=== PATIENT | male | born 1955 | race American Indian/Alaskan Native ===

== ENCOUNTER 2017-04-19 08:33 | Emergency (ER) | payer MEDICAID ==
[2017-04-19 10:43] LABS: Basophils % (Auto) 0.5 % (0.0-1.8); Hematocrit 48.2 % (35.5-45.6); Hemoglobin 16.2 gm/dl (11.8-15.2); Mean Corpuscular HGB Conc 34 % (32-34); Mean Corpuscular Hemoglobin 30 pg (28-32); Mean Corpuscular Volume 90 fl (84-94); Platelet Count 223 K/mm3 (140-440); Red Blood Count 5.38 M/mm3 (3.65-5.03); White Blood Count 8.1 K/mm3 (4.5-11.0)
[2017-04-19 10:46] LABS: Anion Gap 17 mmol/L; BUN/Creatinine Ratio 10; Blood Urea Nitrogen 11 mg/dL (9-20); Carbon Dioxide 32 mmol/L (22-30); Chloride 95.6 mmol/L (98-107); Glucose 99 mg/dL (75-100); Potassium 3.3 mmol/L (3.6-5.0); Sodium 141 mmol/L (137-145)
[2017-04-19] MEDS ORDERED: DILAUDID IM ONE (11:23)
[2017-04-19] MEDS ORDERED: TORADOL IM ONE (11:24)
[2017-04-19] MEDS ORDERED: K-DUR PO ONE (11:24)
--- NOTE | 2017-04-19 11:24 | Emergency Department Report ---
ED General Adult HPI - General Chief complaint: Pain General Stated complaint: NECK PAIN/WILLA Time Seen by Provider: 04/19/17 11:14 Source: patient, RN notes reviewed, old records reviewed Mode of arrival: Ambulatory Limitations: No Limitations - History of Present Illness Initial comments: This is a 61-year-old male. The patient is previously unknown to this provider. Patient has a past medical history of COPD. The patient presents with 2 complaints. The patient's first complaint is neck pain. The neck pain is paracervical, and involves his bilateral trapezius. The pain has been present for 1 month. It is constant. It increases with palpation, range of motion, twisting. It decreases with oxycodone. The patient denies headache, sore throat, fever, dysphonia, chest pain. The patient denies tinnitus, vertigo, otalgia. Patient seen in this department for a similar complaint earlier on in the month, that a noncontrast CT scan of the cervical spine which demonstrated no fracture or dislocation, severe DJD was noted, moderate canal stenosis was noted, and multiple broad-based disc bulges were noted. Patient also complains of shortness of breath. This shortness of breath has been present for 1 month. It is painless. He has no exacerbating or relieving factors. The patient indicates no cough, mucus production, diaphoresis. He also indicates no shortness of breath. The patient had a cardiac catheterization at this hospital September 2015, which demonstrated normal coronary arteries, ejection fraction 45-50%, and a post catheterization diagnosis as per cardiology of noncardiac chest pain. -: Gradual, week(s) Location: neck Radiation: back, neck Quality: aching Consistency: constant Improves with: medication, rest Worsens with: movement Associated Symptoms: shortness of breath. denies: confusion, chest pain, cough , diaphoresis, fever/chills, headaches, loss of appetite, malaise, nausea/ vomiting, rash, seizure - Related Data Previous Rx's Medication Instructions Recorded Last Taken Type Albuterol *Only Ed* [Proventil 2.5 mg IH Q4HRT PRN #120 nebu 07/26/14 Unknown Rx 0.5% NEBS] Ipratropium/Albuterol Sulfate 1 ampul IH QID #120 ampul.neb 07/26/14 Unknown Rx [DUONEB *Not for PRN Use*] Benzonatate [Tessalon Perles] 100 mg PO Q8HR PRN #30 capsule 11/03/14 Unknown Rx Acetaminophen/Codeine [Tylenol 1 tab PO Q6H PRN #15 tab 10/17/15 Unknown Rx /Codeine # 3 tab] Albuterol Sulfate [Ventolin HFA] 2 puff IH Q4H PRN #1 hfa.aer.ad 10/17/15 Unknown Rx Aspirin EC [Aspirin Enteric Coated 325 mg PO QDAY #30 tablet 10/17/15 Unknown Rx TAB] Budesoni/Formotero 160-4.5(Nf) 2 puff IH BID #1 inha 10/17/15 Unknown Rx [Symbicort 160-4.5 (Nf)] Hydrochlorothiazide [HCTZ] 25 mg PO QDAY #30 tablet 10/17/15 Unknown Rx Lisinopril [Zestril TAB] 10 mg PO QDAY #30 tablet 10/17/15 Unknown Rx Loratadine [Claritin] 10 mg PO QDAY #30 tablet 10/17/15 Unknown Rx Metoprolol [Lopressor TAB] 12.5 mg PO BID #60 tablet 10/17/15 Unknown Rx Montelukast [Singulair] 10 mg PO QPM #30 tablet 10/17/15 Unknown Rx Tamsulosin [Flomax] 0.4 mg PO QDAY #30 capsule 10/17/15 Unknown Rx buPROPion XL [Wellbutrin XL] 150 mg PO Q24HR #30 tablet 10/17/15 Unknown Rx methOCARBAMOL [Robaxin TAB] 500 mg PO BID #20 tab 10/17/15 Unknown Rx Levofloxacin [Levaquin] 750 mg PO QDAY #7 tablet 04/19/16 Unknown Rx predniSONE [Deltasone] 3 tab PO QDAY #15 tab 04/19/16 Unknown Rx Azithromycin [Zithromax TAB] 250 mg PO QDAY #6 tablet 05/07/16 Unknown Rx Hydrocodone/Chlorphen P-Stirex 5 ml PO BID PRN #250 ml 05/07/16 Unknown Rx [HYDROcodone-Chlorphen ER Susp] Prednisone [predniSONE 10 mg 10 mg PO .TAPER #1 tab.ds.pk 05/07/16 Unknown Rx (6-Day Pack, 21 Tabs)] Albuterol Sulfate [Albuterol 0.63% 0.63 mg IH TID PRN #90 ml 04/01/17 Unknown Rx NEBS] Prednisone [predniSONE 10 mg 10 mg PO .TAPER #1 tab.ds.pk 04/01/17 Unknown Rx (6-Day Pack, 21 Tabs)] ALBUTEROL Inhaler [ProAir HFA 2 puff IH QID PRN #1 inhalation 04/19/17 Unknown Rx Inhaler] Ibuprofen [Motrin 800 MG tab] 800 mg PO Q8HR PRN #20 tablet 04/19/17 Unknown Rx Tiotropium [Spiriva] 18 mcg IH QDAY #1 cap 04/19/17 Unknown Rx oxyCODONE /ACETAMINOPHEN [Percocet 1 - 2 tab PO Q6HR PRN #10 tablet 04/19/17 Unknown Rx 5/325 mg] Allergies Allergy/AdvReac Type Severity Reaction Status Date / Time Penicillins Allergy Rash Verified 05/04/16 14:53 ED Review of Systems ROS: Stated complaint: NECK PAIN/WILLA Other details as noted in HPI Constitutional: denies: fever Eyes: denies: eye discharge ENT: denies: epistaxis Respiratory: shortness of breath. denies: cough Cardiovascular: denies: chest pain Gastrointestinal: denies: vomiting Genitourinary: as per HPI, dysuria Musculoskeletal: arthralgia, myalgia Skin: denies: lesions Neurological: denies: weakness, numbness, abnormal gait ED Past Medical Hx - Past Medical History Hx Hypertension: Yes Hx CVA: No Hx Heart Attack/AMI: No Hx Congestive Heart Failure: No Hx Diabetes: No Hx Deep Vein Thrombosis: No Hx Pulmonary Embolism: No Hx GERD: No Hx Liver Disease: No Hx Renal Disease: No Hx Sickle Cell Disease: No Hx Arthritis: No Hx Headaches / Migraines: No Hx Seizures: No Hx Kidney Stones: No Hx Psychiatric Treatment: No Hx Asthma: Yes Hx COPD: Yes Hx Tuberculosis: No Hx Dementia: No Hx HIV: No Additional medical history: candidate for lung transplant - Surgical History Hx Coronary Stent: No Hx Open Heart Surgery: No Hx Pacemaker: No Hx Internal Defibrillator: No Hx Cholecystectomy: No Hx Appendectomy: Yes Hx Breast Surgery: No - Social History Smoking Status: Never Smoker Substance Use Type: None - Medications Home Medications: Home Medications Medication Instructions Recorded Confirmed Last Taken Type Albuterol *Only Ed* [Proventil 2.5 mg IH Q4HRT PRN #120 nebu 07/26/14 05/05/16 Unknown Rx 0.5% NEBS] Ipratropium/Albuterol Sulfate 1 ampul IH QID #120 ampul.neb 07/26/14 05/05/16 Unknown Rx [DUONEB *Not for PRN Use*] Benzonatate [Tessalon Perles] 100 mg PO Q8HR PRN #30 capsule 11/03/14 05/05/16 Unknown Rx Acetaminophen/Codeine [Tylenol 1 tab PO Q6H PRN #15 tab 10/17/15 05/05/16 Unknown Rx /Codeine # 3 tab] Albuterol Sulfate [Ventolin HFA] 2 puff IH Q4H PRN #1 hfa.aer.ad 10/17/15 Unknown Rx Aspirin EC [Aspirin Enteric Coated 325 mg PO QDAY #30 tablet 10/17/15 05/05/16 Unknown Rx TAB] Budesoni/Formotero 160-4.5(Nf) 2 puff IH BID #1 inha 10/17/15 05/05/16 Unknown Rx [Symbicort 160-4.5 (Nf)] Hydrochlorothiazide [HCTZ] 25 mg PO QDAY #30 tablet 10/17/15 05/05/16 Unknown Rx Lisinopril [Zestril TAB] 10 mg PO QDAY #30 tablet 10/17/15 05/05/16 Unknown Rx Loratadine [Claritin] 10 mg PO QDAY #30 tablet 10/17/15 05/05/16 Unknown Rx Metoprolol [Lopressor TAB] 12.5 mg PO BID #60 tablet 10/17/15 05/05/16 Unknown Rx Montelukast [Singulair] 10 mg PO QPM #30 tablet 10/17/15 05/05/16 Unknown Rx Tamsulosin [Flomax] 0.4 mg PO QDAY #30 capsule 10/17/15 05/05/16 Unknown Rx buPROPion XL [Wellbutrin XL] 150 mg PO Q24HR #30 tablet 10/17/15 05/05/16 Unknown Rx methOCARBAMOL [Robaxin TAB] 500 mg PO BID #20 tab 10/17/15 05/05/16 Unknown Rx Levofloxacin [Levaquin] 750 mg PO QDAY #7 tablet 04/19/16 05/05/16 Unknown Rx predniSONE [Deltasone] 3 tab PO QDAY #15 tab 04/19/16 05/05/16 Unknown Rx Azithromycin [Zithromax TAB] 250 mg PO QDAY #6 tablet 05/07/16 Unknown Rx Hydrocodone/Chlorphen P-Stirex 5 ml PO BID PRN #250 ml 05/07/16 Unknown Rx [HYDROcodone-Chlorphen ER Susp] Prednisone [predniSONE 10 mg 10 mg PO .TAPER #1 tab.ds.pk 05/07/16 Unknown Rx (6-Day Pack, 21 Tabs)] Albuterol Sulfate [Albuterol 0.63% 0.63 mg IH TID PRN #90 ml 04/01/17 Unknown Rx NEBS] Prednisone [predniSONE 10 mg 10 mg PO .TAPER #1 tab.ds.pk 04/01/17 Unknown Rx (6-Day Pack, 21 Tabs)] ALBUTEROL Inhaler [ProAir HFA 2 puff IH QID PRN #1 inhalation 04/19/17 Unknown Rx Inhaler] Ibuprofen [Motrin 800 MG tab] 800 mg PO Q8HR PRN #20 tablet 04/19/17 Unknown Rx Tiotropium [Spiriva] 18 mcg IH QDAY #1 cap 04/19/17 Unknown Rx oxyCODONE /ACETAMINOPHEN [Percocet 1 - 2 tab PO Q6HR PRN #10 tablet 04/19/17 Unknown Rx 5/325 mg] ED Physical Exam - General Limitations: No Limitations General appearance: alert, in no apparent distress - Head Head exam: Present: atraumatic, normocephalic - Eye Eye exam: Present: normal appearance, PERRL, EOMI. Absent: nystagmus - ENT ENT exam: Present: normal exam, normal orophraynx, mucous membranes moist, normal external ear exam - Neck Neck exam: Present: normal inspection, tenderness (there is bilateral paracervical neck tenderness. There is no midline cervical spine tenderness.), full ROM. Absent: meningismus - Respiratory Respiratory exam: Present: normal lung sounds bilaterally. Absent: respiratory distress - Cardiovascular Cardiovascular Exam: Present: regular rate, normal rhythm, normal heart sounds. Absent: systolic murmur, diastolic murmur, rubs, gallop - GI/Abdominal GI/Abdominal exam: Present: soft, normal bowel sounds. Absent: distended, tenderness, guarding, rebound, rigid, pulsatile mass - Rectal Rectal exam: Present: deferred - Extremities Exam Extremities exam: Present: normal inspection, full ROM, normal capillary refill. Absent: pedal edema, joint swelling, calf tenderness - Back Exam Back exam: Present: normal inspection, full ROM, paraspinal tenderness. Absent : vertebral tenderness - Neurological Exam Neurological exam: Present: alert, oriented X3, normal gait, other (Extraocular movements intact. Tongue midline. No facial droop. Facial sensation intact to light touch in the V1, V2, V3 distribution bilaterally. 5 and 5 strength in 4 extremities.. Sensation is intact to light touch in 4 extremities.). Absent : motor sensory deficit - Psychiatric Psychiatric exam: Present: normal affect, normal mood - Skin Skin exam: Present: warm, dry, intact, normal color. Absent: rash ED Course Vital Signs 04/19/17 04/19/17 08:41 11:31 Temperature 98 F 98.4 F Pulse Rate 94 H 87 Respiratory 22 16 Rate Blood Pressure 147/87 Blood Pressure 136/90 [Left] O2 Sat by Pulse 95 96 Oximetry - Reevaluation(s) Reevaluation #1: 04/19/17 12:20 Elevated creatinine kinase is appreciated. Pulses are required IV fluids. He will decrease with oral hydration. Patient is encouraged to follow up with a job training supervisor for further evaluation. This hospital does not have a job training supervisor available for consultation, but given the patient's symptoms have been present for 1 month, he does not require an emergent consultation. ED Medical Decision Making - Lab Data Result diagrams: 04/19/17 10:23 04/19/17 10:23 Vital Signs 04/19/17 04/19/17 08:41 11:31 Temperature 98 F 98.4 F Pulse Rate 94 H 87 Respiratory 22 16 Rate Blood Pressure 147/87 Blood Pressure 136/90 [Left] O2 Sat by Pulse 95 96 Oximetry Lab Results 04/19/17 04/19/17 Range/Units 10:23 10:23 WBC 8.1 (4.5-11.0) K/mm3 RBC 5.38 H (3.65-5.03) M/mm3 Hgb 16.2 H (11.8-15.2) gm/dl Hct 48.2 H (35.5-45.6) % MCV 90 (84-94) fl MCH 30 (28-32) pg MCHC 34 (32-34) % RDW 15.0 (13.2-15.2) % Plt Count 223 (140-440) K/mm3 Lymph % (Auto) 31.6 (13.4-35.0) % [place] % (Auto) 10.0 H (0.0-7.3) % Eos % (Auto) 3.0 (0.0-4.3) % Baso % (Auto) 0.5 (0.0-1.8) % Lymph # 2.6 (1.2-5.4) K/mm3 [place] # 0.8 (0.0-0.8) K/mm3 Eos # 0.2 (0.0-0.4) K/mm3 Baso # 0.0 (0.0-0.1) K/mm3 Seg Neutrophils % 54.9 (40.0-70.0) % Seg Neutrophils # 4.4 (1.8-7.7) K/mm3 Sodium 141 (137-145) mmol/L Potassium 3.3 L (3.6-5.0) mmol/L Chloride 95.6 L (98-107) mmol/L Carbon Dioxide 32 H (22-30) mmol/L Anion Gap 17 mmol/L BUN 11 (9-20) mg/dL Creatinine 1.1 (0.8-1.5) mg/dL Estimated GFR > 60 ml/min BUN/Creatinine Ratio 10 % Glucose 99 (75-100) mg/dL Calcium 9.0 (8.4-10.2) mg/dL - EKG Data 04/19/17 12:21 Normal sinus, 86 bpm, motion artifact, borderline left axis deviation, low voltage in the septal leads, abnormal EKG, sinus arrhythmia, not morphologically consistent with ST elevation myocardial infarction, unchanged from prior EKG. - Radiology Data Radiology results: report reviewed, image reviewed X-ray of the chest is negative for acute disease. Chronic findings noted. CT scan from earlier on this month is reviewed and appreciated. Cardiac catheterization from 2016 is reviewed and appreciated. - Medical Decision Making Differential diagnosis, including without limited to: DJD, muscular neck pain, myositis, chronic COPD Assessment and plan: 61-year-old male who endorses one month of chronic paracervical neck pain. Seen in this department within the past 4 weeks for similar complaint. Objective examination today and from earlier on this month did not demonstrate any findings that would require emergent surgical intervention. Patient is given hydromorphone and Toradol IM with some improvement in symptoms. No pulmonary embolus or DVT risk factors, low risk by well's criteria, no chest pain, shortness of breath has been present for 1 month , x-ray of the chest is unchanged, saturating well, an EKG while abnormal, appears unchanged from prior. Given the patient had a negative cardiac catheterization September 2015, I don't believe he requires further violation acutely from the emergency department, and patient is instructed to follow-up with an outpatient spine surgeon and pain specialist. He will be discharged at this time. Critical care attestation.: If time is entered above; I have spent that time in minutes in the direct care of this critically ill patient, excluding procedure time. ED Disposition Clinical Impression: Neck pain, Chronic obstructive pulmonary disease Disposition: - TO HOME OR SELFCARE Is pt being admited?: No Does the pt Need Aspirin: No Condition: Stable Instructions: Chronic Obstructive Pulmonary Disease (ED) Additional Instructions: Rest and avoid heavy lifting. Avoid strenuous physical activity. Take the pain medication as directed. If taking oxycodone, do not drive, consume alcohol , or make important decisions. Follow-up with either a pain specialist or spine/neurosurgeon specialist within the next week. Dr. Loera is a local pain specialist. Local spine/neurosurgeons include Drs. Deras and Dr. Baker Take the breathing medications as needed/directed. Return to the ER right away with new pain, worsened pain, migration of pain, fevers, chills, lethargy, irritability, projectile vomiting, change in mental status, inability to tolerate liquid feeds, confusion. Prescriptions: ALBUTEROL Inhaler [ProAir HFA Inhaler] 2 puff IH QID PRN #1 inhalation PRN Reason: Shortness Of Breath Ibuprofen [Motrin 800 MG tab] 800 mg PO Q8HR PRN #20 tablet PRN Reason: Pain oxyCODONE /ACETAMINOPHEN [Percocet 5/325 mg] 1 - 2 tab PO Q6HR PRN #10 tablet PRN Reason: Pain Tiotropium [Spiriva] 18 mcg IH QDAY #1 cap Referrals: PRIMARY CARE, [Primary Care Provider] - 3-5 Days STAR KAPLAN MD [Staff Physician] - 3-5 Days ROLANDO POLLOCK MD [Staff Physician] - 3-5 Days TONI BAKER MD [Staff Physician] - 3-5 Days
--- NOTE | 2017-04-19 11:24 | XRay Report ---
PA and lateral chest: SOB. There is a large bulla in the right upper lobe laterally. There is a generally increased interstitial pattern throughout both lungs with generalized hyperinflation. No focal infiltrate identified. The heart is normal in size. The frontal view is unchanged compared to prior exam of March 31. Impression: COPD. Large right upper lobe bulla. No acute finding.
[2017-04-19 11:32] VITALS: BP 136/90
== END 2017-04-19 13:56 | disposition home or self-care (01) ==
LOC: ED 08:33
DX: J44.9 Chronic obstructive pulmonary disease, unspecified (principal); M54.2 Cervicalgia; I10 Essential (primary) hypertension; J45.909 Unspecified asthma, uncomplicated; Z88.0 Allergy status to penicillin
CPT/HCPCS: 36415; 71020; 80048; 82550; 85025; 93005; 93010; 96372; 99284; J1170; J1885

== ENCOUNTER 2017-07-29 16:57 | Emergency (ER) | payer MEDICAID ==
--- NOTE | 2017-07-29 17:35 | Emergency Department Report ---
ED Chest Pain HPI - General Chief Complaint: Chest Pain Stated Complaint: CHEST PAIN Time Seen by Provider: 07/29/17 17:19 Source: patient Mode of arrival: Ambulatory Limitations: No Limitations - History of Present Illness Initial Comments: States he is having constant sharp chest pain since yesterday. Reports waking up at 530am yesterday with a sweat, admits to having COPD. Reports never having had a heart attack. Reports having HTN. Denies DM. Admits to having COPD exacerbations and he has been more short of breath in the past two days but feels this is different. Denies fever. MD Complaint: chest pain -: days(s) (2) Pain Location: left chest (hurts with movement and deep breath) Pain Radiation: neck (is uspposed to have surgery on his neck for chronic neck pain, degenerative joint disease) Severity: moderate Severity scale (0 -10): 9 Quality: sharp Consistency: constant Improves With: nothing Worsens With: inspiration, movement Context: other (No recent injury or illness) re: dyspnea. denies: nausea, vomting Other Symptoms: leg swelling (occurs when he sits for extended periods of time, denies heart failure). denies: cough, fever, syncope Treatments Prior to Arrival: oxygen Aspirin use within the Past 7 Days: (0) No - Related Data Previous Rx's Medication Instructions Recorded Last Taken Type Albuterol *Only Ed* [Proventil 2.5 mg IH Q4HRT PRN #120 nebu 07/26/14 Unknown Rx 0.5% NEBS] Ipratropium/Albuterol Sulfate 1 ampul IH QID #120 ampul.neb 07/26/14 Unknown Rx [DUONEB *Not for PRN Use*] Benzonatate [Tessalon Perles] 100 mg PO Q8HR PRN #30 capsule 11/03/14 Unknown Rx Acetaminophen/Codeine [Tylenol 1 tab PO Q6H PRN #15 tab 10/17/15 Unknown Rx /Codeine # 3 tab] Albuterol Sulfate [Ventolin HFA] 2 puff IH Q4H PRN #1 hfa.aer.ad 10/17/15 Unknown Rx Aspirin EC [Aspirin Enteric Coated 325 mg PO QDAY #30 tablet 10/17/15 Unknown Rx TAB] Budesoni/Formotero 160-4.5(Nf) 2 puff IH BID #1 inha 10/17/15 Unknown Rx [Symbicort 160-4.5 (Nf)] Hydrochlorothiazide [HCTZ] 25 mg PO QDAY #30 tablet 10/17/15 Unknown Rx Lisinopril [Zestril TAB] 10 mg PO QDAY #30 tablet 10/17/15 Unknown Rx Loratadine [Claritin] 10 mg PO QDAY #30 tablet 10/17/15 Unknown Rx Metoprolol [Lopressor TAB] 12.5 mg PO BID #60 tablet 10/17/15 Unknown Rx Montelukast [Singulair] 10 mg PO QPM #30 tablet 10/17/15 Unknown Rx Tamsulosin [Flomax] 0.4 mg PO QDAY #30 capsule 10/17/15 Unknown Rx buPROPion XL [Wellbutrin XL] 150 mg PO Q24HR #30 tablet 10/17/15 Unknown Rx methOCARBAMOL [Robaxin TAB] 500 mg PO BID #20 tab 10/17/15 Unknown Rx Levofloxacin [Levaquin] 750 mg PO QDAY #7 tablet 04/19/16 Unknown Rx predniSONE [Deltasone] 3 tab PO QDAY #15 tab 04/19/16 Unknown Rx Azithromycin [Zithromax TAB] 250 mg PO QDAY #6 tablet 05/07/16 Unknown Rx Hydrocodone/Chlorphen P-Stirex 5 ml PO BID PRN #250 ml 05/07/16 Unknown Rx [HYDROcodone-Chlorphen ER Susp] Prednisone [predniSONE 10 mg 10 mg PO .TAPER #1 tab.ds.pk 05/07/16 Unknown Rx (6-Day Pack, 21 Tabs)] Albuterol Sulfate [Albuterol 0.63% 0.63 mg IH TID PRN #90 ml 04/01/17 Unknown Rx NEBS] Prednisone [predniSONE 10 mg 10 mg PO .TAPER #1 tab.ds.pk 04/01/17 Unknown Rx (6-Day Pack, 21 Tabs)] ALBUTEROL Inhaler [ProAir HFA 2 puff IH QID PRN #1 inhalation 04/19/17 Unknown Rx Inhaler] Ibuprofen [Motrin 800 MG tab] 800 mg PO Q8HR PRN #20 tablet 04/19/17 Unknown Rx Tiotropium [Spiriva] 18 mcg IH QDAY #1 cap 11/24/17 Unknown Rx oxyCODONE /ACETAMINOPHEN [Percocet 1 - 2 tab PO Q6HR PRN #10 tablet 04/19/17 Unknown Rx 5/325 mg] Allergies Allergy/AdvReac Type Severity Reaction Status Date / Time Penicillins Allergy Rash Verified 05/04/16 14:53 Heart Score - HEART Score History: Slightly suspicious EKG: Non-specific Age: 45-65 Risk factors: 1-2 risk factors Troponin: < normal limit HEART Score: 3 ED Review of Systems ROS: Stated complaint: CHEST PAIN Other details as noted in HPI Comment: All other systems reviewed and negative Constitutional: no symptoms reported Eyes: as per HPI ENT: as per HPI Respiratory: see HPI. denies: cough Cardiovascular: chest pain, dyspnea on exertion Endocrine: see HPI Gastrointestinal: as per HPI Genitourinary: as per HPI Musculoskeletal: as per HPI Skin: as per HPI Neurological: as per HPI Psychiatric: as per HPI Hematological/Lymphatic: as per HPI ED Past Medical Hx - Past Medical History Hx Hypertension: Yes Hx CVA: No Hx Heart Attack/AMI: No Hx Congestive Heart Failure: No Hx Diabetes: No Hx Deep Vein Thrombosis: No Hx Pulmonary Embolism: No Hx GERD: No Hx Liver Disease: No Hx Renal Disease: No Hx Sickle Cell Disease: No Hx Arthritis: No Hx Headaches / Migraines: No Hx Seizures: No Hx Kidney Stones: No Hx Psychiatric Treatment: No Hx Asthma: Yes Hx COPD: Yes Hx Tuberculosis: No Hx Dementia: No Hx HIV: No Additional medical history: candidate for lung transplant - Surgical History Hx Coronary Stent: No Hx Open Heart Surgery: No Hx Pacemaker: No Hx Internal Defibrillator: No Hx Cholecystectomy: No Hx Appendectomy: Yes Hx Breast Surgery: No - Social History Smoking Status: Never Smoker - Medications Home Medications: Home Medications Medication Instructions Recorded Confirmed Last Taken Type Albuterol *Only Ed* [Proventil 2.5 mg IH Q4HRT PRN #120 nebu 07/26/14 05/05/16 Unknown Rx 0.5% NEBS] Ipratropium/Albuterol Sulfate 1 ampul IH QID #120 ampul.neb 07/26/14 05/05/16 Unknown Rx [DUONEB *Not for PRN Use*] Benzonatate [Tessalon Perles] 100 mg PO Q8HR PRN #30 capsule 11/03/14 05/05/16 Unknown Rx Acetaminophen/Codeine [Tylenol 1 tab PO Q6H PRN #15 tab 10/17/15 05/05/16 Unknown Rx /Codeine # 3 tab] Albuterol Sulfate [Ventolin HFA] 2 puff IH Q4H PRN #1 hfa.aer.ad 10/17/15 Unknown Rx Aspirin EC [Aspirin Enteric Coated 325 mg PO QDAY #30 tablet 10/17/15 05/05/16 Unknown Rx TAB] Budesoni/Formotero 160-4.5(Nf) 2 puff IH BID #1 inha 10/17/15 05/05/16 Unknown Rx [Symbicort 160-4.5 (Nf)] Hydrochlorothiazide [HCTZ] 25 mg PO QDAY #30 tablet 10/17/15 05/05/16 Unknown Rx Lisinopril [Zestril TAB] 10 mg PO QDAY #30 tablet 10/17/15 05/05/16 Unknown Rx Loratadine [Claritin] 10 mg PO QDAY #30 tablet 10/17/15 05/05/16 Unknown Rx Metoprolol [Lopressor TAB] 12.5 mg PO BID #60 tablet 10/17/15 05/05/16 Unknown Rx Montelukast [Singulair] 10 mg PO QPM #30 tablet 10/17/15 05/05/16 Unknown Rx Tamsulosin [Flomax] 0.4 mg PO QDAY #30 capsule 10/17/15 05/05/16 Unknown Rx buPROPion XL [Wellbutrin XL] 150 mg PO Q24HR #30 tablet 10/17/15 05/05/16 Unknown Rx methOCARBAMOL [Robaxin TAB] 500 mg PO BID #20 tab 10/17/15 05/05/16 Unknown Rx Levofloxacin [Levaquin] 750 mg PO QDAY #7 tablet 04/19/16 05/05/16 Unknown Rx predniSONE [Deltasone] 3 tab PO QDAY #15 tab 04/19/16 05/05/16 Unknown Rx Azithromycin [Zithromax TAB] 250 mg PO QDAY #6 tablet 05/07/16 Unknown Rx Hydrocodone/Chlorphen P-Stirex 5 ml PO BID PRN #250 ml 05/07/16 Unknown Rx [HYDROcodone-Chlorphen ER Susp] Prednisone [predniSONE 10 mg 10 mg PO .TAPER #1 tab.ds.pk 05/07/16 Unknown Rx (6-Day Pack, 21 Tabs)] Albuterol Sulfate [Albuterol 0.63% 0.63 mg IH TID PRN #90 ml 04/01/17 Unknown Rx NEBS] Prednisone [predniSONE 10 mg 10 mg PO .TAPER #1 tab.ds.pk 04/01/17 Unknown Rx (6-Day Pack, 21 Tabs)] ALBUTEROL Inhaler [ProAir HFA 2 puff IH QID PRN #1 inhalation 04/19/17 Unknown Rx Inhaler] Ibuprofen [Motrin 800 MG tab] 800 mg PO Q8HR PRN #20 tablet 04/19/17 Unknown Rx Tiotropium [Spiriva] 18 mcg IH QDAY #1 cap 04/19/17 Unknown Rx oxyCODONE /ACETAMINOPHEN [Percocet 1 - 2 tab PO Q6HR PRN #10 tablet 04/19/17 Unknown Rx 5/325 mg] ED Physical Exam - General Limitations: No Limitations General appearance: alert, in no apparent distress - Head Head exam: Present: atraumatic - Eye Eye exam: Present: normal appearance, PERRL, EOMI - ENT ENT exam: Present: normal exam, normal orophraynx - Neck Neck exam: Present: normal inspection - Respiratory Respiratory exam: Present: respiratory distress. Absent: accessory muscle use - Cardiovascular Cardiovascular Exam: Present: normal rhythm, tachycardia - GI/Abdominal GI/Abdominal exam: Present: soft, normal bowel sounds - Back Exam Back exam: Present: normal inspection - Neurological Exam Neurological exam: Present: alert, oriented X3, CN II-XII intact - Psychiatric Psychiatric exam: Present: normal affect, normal mood - Skin Skin exam: Present: warm, dry, intact ED Course Vital Signs 07/29/17 07/29/17 07/29/17 17:01 17:46 17:47 Temperature 98.1 F 98.7 F Pulse Rate 122 H 108 H Respiratory 26 H 18 Rate Blood Pressure 131/94 Blood Pressure 123/82 [Right] O2 Sat by Pulse 96 95 94 Oximetry 07/29/17 07/29/17 07/29/17 18:00 18:15 18:30 Temperature Pulse Rate Respiratory Rate Blood Pressure 123/82 126/97 126/97 Blood Pressure [Right] O2 Sat by Pulse 94 94 92 Oximetry 07/29/17 07/29/17 07/29/17 18:46 19:00 19:20 Temperature 97.7 F Pulse Rate 96 H Respiratory 22 Rate Blood Pressure 128/99 121/93 Blood Pressure 122/90 [Right] O2 Sat by Pulse 97 95 95 Oximetry 07/29/17 07/29/17 07/29/17 20:00 21:00 22:00 Temperature Pulse Rate Respiratory Rate Blood Pressure 126/87 130/94 132/104 Blood Pressure [Right] O2 Sat by Pulse 94 98 96 Oximetry 07/29/17 23:00 Temperature Pulse Rate 87 Respiratory 15 Rate Blood Pressure 123/80 Blood Pressure [Right] O2 Sat by Pulse 87 Oximetry - Reevaluation(s) Reevaluation #1: 07/30/17 01:16 At this time I do not suspect that the chest pain he is experiencing is cardiogenic in origin. 2 sets of cardiac enzymes have been negative. The patient does have history of COPD and is likely that the chest pain is expressing the day is from a COPD exacerbation. The patient has had relief with the nebulizers treatment of albuterol and Atrovent here in the emergency room. He also received Solu-Medrol 125 mg IV. After further discussion with the patient, we will go ahead and discharge the patient home with a Medrol Dosepak and he is to continue with his purulent inhaler. He is to also follow- up with his primary care doctor of choice. He expresses understanding. ANEESH score - Aneesh Score Age > 65: (0) No Aspirin use within the Past 7 Days: (0) No 3 or more CAD Risk Factors: (0) No 2 or more Angina events in past 24 hrs: (1) Yes Known CAD with more than 50% Stenosis: (0) No Elevated Cardiac Markers: (0) No ST Deviation Greater than 0.5mm: (0) No ANEESH Score: 1 ED Medical Decision Making - Lab Data Result diagrams: 07/29/17 18:07 07/29/17 18:07 Critical care attestation.: If time is entered above; I have spent that time in minutes in the direct care of this critically ill patient, excluding procedure time. ED Disposition Clinical Impression: COPD exacerbation Disposition: DC-01 TO HOME OR SELFCARE Is pt being admited?: No Does the pt Need Aspirin: No Condition: Stable Instructions: Chronic Bronchitis (ED)
[2017-07-29 18:22] LABS: Basophils % (Auto) 0.1 % (0.0-1.8); Hematocrit 51.6 % (35.5-45.6); Lymphocytes % (Auto) 13.4 % (13.4-35.0); Mean Corpuscular HGB Conc 33 % (32-34); Mean Corpuscular Hemoglobin 30 pg (28-32); Mean Corpuscular Volume 91 fl (84-94); Monocytes # (Auto) 0.3 K/mm3 (0.0-0.8); Monocytes % (Auto) 3.9 % (0.0-7.3); Platelet Count 248 K/mm3 (140-440); Red Cell Distribution Width 14.9 % (13.2-15.2)
[2017-07-29 18:34] LABS: INR 0.96 (0.87-1.13); Partial Thromboplastin Time 29.9 Sec. (24.2-36.6)
[2017-07-29 18:50] LABS: Alanine Aminotransferase 24 units/L (7-56); Albumin 4.5 g/dL (3.9-5); BUN/Creatinine Ratio 8; Blood Urea Nitrogen 11 mg/dL (9-20); Calcium 9.7 mg/dL (8.4-10.2); Hemolysis Index 70
--- NOTE | 2017-07-29 18:53 | XRay Report ---
FINAL REPORT PROCEDURE: XR CHEST 1V AP TECHNIQUE: Chest radiograph anteroposterior view. CPT 90746 HISTORY: Dyspnea COMPARISON: 03/31/2017 FINDINGS: Heart: Normal. Mediastinum/Vessels: Normal. Lungs/Pleural space: There is a large bullous in the right upper lobe, stable in appearance since the prior study. No acute infiltrate, effusion, or pneumothorax is seen. Chronic bilateral reticular markings are present. Bony thorax: No acute osseous abnormality. Life support devices: None. IMPRESSION: No radiographic evidence of acute cardiopulmonary abnormality.
[2017-07-29 19:24] LABS: Bacteria,Urine 1+ /HPF (Negative); Bilirubin,Urine NEG (Negative); Blood,Urine NEG (Negative); Color,Urine Yellow (Yellow); Mucus,Urine FEW /HPF; Urobilinogen,Urine < 2.0 mg/dL (<2.0); WBC,Urine < 1.0 /HPF (0.0-6.0)
[2017-07-29] MEDS ORDERED: DUONEB *Not for PRN Use IH ONE (21:52)
[2017-07-29] MEDS ORDERED: HEPARIN 10,000 UNITS/10 ML IV ONE (23:54)
[2017-07-30 01:28] VITALS: BP 120/77
== END 2017-07-30 02:10 | disposition home or self-care (01) ==
LOC: ED 16:57
DX: J44.1 Chronic obstructive pulmonary disease with (acute) exacerbation (principal); I10 Essential (primary) hypertension; Z79.82 Long term (current) use of aspirin; Z79.899 Other long term (current) drug therapy
CPT/HCPCS: 36415; 71045; 80053; 81001; 82140; 83735; 84484; 85025; 85610; 85730; 93005; 93010; 96374; 99284; J1644; J2930

== ENCOUNTER 2018-01-16 07:11 | Emergency (ER) | payer MEDICAID ==
[2018-01-16 07:49] LABS: Basophils # (Auto) 0.1 K/mm3 (0.0-0.1); Eosinophils # (Auto) 0.2 K/mm3 (0.0-0.4); Eosinophils % (Auto) 3.3 % (0.0-4.3); Hematocrit 44.4 % (35.5-45.6); Hemoglobin 15.3 gm/dl (11.8-15.2); Lymphocytes # (Auto) 2.8 K/mm3 (1.2-5.4); Lymphocytes % (Auto) 39.9 % (13.4-35.0); Mean Corpuscular HGB Conc 34 % (32-34); Mean Corpuscular Hemoglobin 30 pg (28-32); Mean Corpuscular Volume 88 fl (84-94); Monocytes # (Auto) 0.6 K/mm3 (0.0-0.8); Monocytes % (Auto) 9.2 % (0.0-7.3); Platelet Count 359 K/mm3 (140-440); Red Blood Count 5.03 M/mm3 (3.65-5.03); Red Cell Distribution Width 14.5 % (13.2-15.2)
--- NOTE | 2018-01-16 07:52 | XRay Report ---
CHEST XRAY, 2 VIEWS: History: Shortness of breath. Findings: There is mild diffuse interstitial coarsening. The lungs are hyperexpanded but clear. No infiltrate, pleural fluid or pneumothorax is detected. The cardiac silhouette and pulmonary vasculature are within normal limits for technique. The bony thorax is unremarkable. IMPRESSION: Changes consistent with COPD. No acute cardiopulmonary process. No significant change since 07/29/17.
[2018-01-16 08:03] LABS: BUN/Creatinine Ratio 9; Blood Urea Nitrogen 10 mg/dL (9-20); Calcium 9.4 mg/dL (8.4-10.2); Hemolysis Index 33
--- NOTE | 2018-01-16 08:08 | Emergency Department Report ---
ED General Adult HPI - General Chief complaint: Dyspnea/Respdistress Stated complaint: WILLA,STAPLE REMOVAL Time Seen by Provider: 01/16/18 08:01 Source: patient Mode of arrival: Ambulatory Limitations: No Limitations - History of Present Illness Initial comments: Patient is 62 years old male with history of hypertension and COPD on oxygen at home. Patient stated that he had lab cholecystectomy the weeks ago in [place]. Patient stated that he just moved down to [place]. Patient stated that he does not have a primary care physician or a lung doctor here yet. He is asking for a referral to a primary care physician and a possible refill of his medication. Patient also want his stables removed. Patient is complaining of mild shortness of breaths for which he stated that this is usual for him. She denied any fever, chest pain, nausea or vomiting or abdominal pain. - Related Data Previous Rx's Medication Instructions Recorded Last Taken Type Albuterol *Only Ed* [Proventil 2.5 mg IH Q4HRT PRN #120 nebu 07/26/14 Unknown Rx 0.5% NEBS] Ipratropium/Albuterol Sulfate 1 ampul IH QID #120 ampul.neb 07/26/14 Unknown Rx [DUONEB *Not for PRN Use*] Benzonatate [Tessalon Perles] 100 mg PO Q8HR PRN #30 capsule 11/03/14 Unknown Rx Acetaminophen/Codeine [Tylenol 1 tab PO Q6H PRN #15 tab 10/17/15 Unknown Rx /Codeine # 3 tab] Albuterol Sulfate [Ventolin HFA] 2 puff IH Q4H PRN #1 hfa.aer.ad 10/17/15 Unknown Rx Aspirin EC [Aspirin Enteric Coated 325 mg PO QDAY #30 tablet 10/17/15 Unknown Rx TAB] Budesoni/Formotero 160-4.5(Nf) 2 puff IH BID #1 inha 10/17/15 Unknown Rx [Symbicort 160-4.5 (Nf)] Lisinopril [Zestril TAB] 10 mg PO QDAY #30 tablet 10/17/15 Unknown Rx Loratadine [Claritin] 10 mg PO QDAY #30 tablet 10/17/15 Unknown Rx Metoprolol [Lopressor TAB] 12.5 mg PO BID #60 tablet 10/17/15 Unknown Rx Montelukast [Singulair] 10 mg PO QPM #30 tablet 10/17/15 Unknown Rx Tamsulosin [Flomax] 0.4 mg PO QDAY #30 capsule 10/17/15 Unknown Rx buPROPion XL [Wellbutrin XL] 150 mg PO Q24HR #30 tablet 10/17/15 Unknown Rx hydroCHLOROthiazide [HCTZ] 25 mg PO QDAY #30 tablet 10/17/15 Unknown Rx methOCARBAMOL [Robaxin TAB] 500 mg PO BID #20 tab 10/17/15 Unknown Rx levoFLOXacin [Levaquin] 750 mg PO QDAY #7 tablet 04/19/16 Unknown Rx predniSONE [Deltasone] 3 tab PO QDAY #15 tab 04/19/16 Unknown Rx Azithromycin [Zithromax TAB] 250 mg PO QDAY #6 tablet 05/07/16 Unknown Rx Hydrocodone/Chlorphen P-Stirex 5 ml PO BID PRN #250 ml 05/07/16 Unknown Rx [HYDROcodone-Chlorphen ER Susp] Prednisone [predniSONE 10 mg 10 mg PO .TAPER #1 tab.ds.pk 05/07/16 Unknown Rx (6-Day Pack, 21 Tabs)] Albuterol Sulfate [Albuterol 0.63% 0.63 mg IH TID PRN #90 ml 04/01/17 Unknown Rx NEBS] Prednisone [predniSONE 10 mg 10 mg PO .TAPER #1 tab.ds.pk 04/01/17 Unknown Rx (6-Day Pack, 21 Tabs)] ALBUTEROL Inhaler [ProAir HFA 2 puff IH QID PRN #1 inhalation 04/19/17 Unknown Rx Inhaler] Ibuprofen [Motrin 800 MG tab] 800 mg PO Q8HR PRN #20 tablet 04/19/17 Unknown Rx Tiotropium [Spiriva] 18 mcg IH QDAY #1 cap 04/19/17 Unknown Rx oxyCODONE /ACETAMINOPHEN [Percocet 1 - 2 tab PO Q6HR PRN #10 tablet 04/19/17 Unknown Rx 5/325 mg] methylPREDNISolone [Medrol Dose 4 mg PO DAILY #1 pack 07/30/17 Unknown Rx Declan] Azithromycin 250 mg PO DAILY #20 tablet 01/16/18 Unknown Rx Budesoni/Formotero 160-4.5(Nf) 2 puff IH BID #1 inha 01/16/18 Unknown Rx [Symbicort 160-4.5 (Nf)] Omeprazole 20 mg PO DAILY #30 tab 01/16/18 Unknown Rx Tamsulosin HCl [Flomax] 0.4 mg PO DAILY #30 capsule 01/16/18 Unknown Rx hydroCHLOROthiazide [HCTZ] 25 mg PO QDAY #30 tablet 01/16/18 Unknown Rx Allergies Allergy/AdvReac Type Severity Reaction Status Date / Time Penicillins Allergy Rash Verified 05/04/16 14:53 ED Review of Systems ROS: Stated complaint: WILLA,STAPLE REMOVAL Other details as noted in HPI Comment: All other systems reviewed and negative Constitutional: denies: chills, fever Respiratory: shortness of breath. denies: cough, orthopnea Cardiovascular: denies: chest pain, palpitations, dyspnea on exertion, orthopnea Gastrointestinal: denies: abdominal pain, nausea, vomiting, diarrhea, constipation, hematemesis, melena, hematochezia Neurological: denies: headache, weakness, numbness, paresthesias, confusion, abnormal gait, vertigo ED Past Medical Hx - Past Medical History Previous Medical History?: Yes Hx Hypertension: Yes Hx CVA: No Hx Heart Attack/AMI: No Hx Congestive Heart Failure: No Hx Diabetes: No Hx Deep Vein Thrombosis: No Hx Pulmonary Embolism: No Hx GERD: No Hx Liver Disease: No Hx Renal Disease: No Hx Sickle Cell Disease: No Hx Arthritis: No Hx Headaches / Migraines: No Hx Seizures: No Hx Kidney Stones: No Hx Psychiatric Treatment: No Hx Asthma: Yes Hx COPD: Yes (2-3L per NC) Hx Tuberculosis: No Hx Dementia: No Hx HIV: No Additional medical history: candidate for lung transplant - Surgical History Past Surgical History?: Yes Hx Coronary Stent: No Hx Open Heart Surgery: No Hx Pacemaker: No Hx Internal Defibrillator: No Hx Cholecystectomy: Yes Hx Appendectomy: Yes Hx Breast Surgery: No - Social History Smoking Status: Former Smoker Substance Use Type: None - Medications Home Medications: Home Medications Medication Instructions Recorded Confirmed Last Taken Type Albuterol *Only Ed* [Proventil 2.5 mg IH Q4HRT PRN #120 nebu 07/26/14 05/05/16 Unknown Rx 0.5% NEBS] Ipratropium/Albuterol Sulfate 1 ampul IH QID #120 ampul.neb 07/26/14 05/05/16 Unknown Rx [DUONEB *Not for PRN Use*] Benzonatate [Tessalon Perles] 100 mg PO Q8HR PRN #30 capsule 11/03/14 05/05/16 Unknown Rx Acetaminophen/Codeine [Tylenol 1 tab PO Q6H PRN #15 tab 10/17/15 05/05/16 Unknown Rx /Codeine # 3 tab] Albuterol Sulfate [Ventolin HFA] 2 puff IH Q4H PRN #1 hfa.aer.ad 10/17/15 Unknown Rx Aspirin EC [Aspirin Enteric Coated 325 mg PO QDAY #30 tablet 10/17/15 05/05/16 Unknown Rx TAB] Budesoni/Formotero 160-4.5(Nf) 2 puff IH BID #1 inha 10/17/15 05/05/16 Unknown Rx [Symbicort 160-4.5 (Nf)] Lisinopril [Zestril TAB] 10 mg PO QDAY #30 tablet 10/17/15 05/05/16 Unknown Rx Loratadine [Claritin] 10 mg PO QDAY #30 tablet 10/17/15 05/05/16 Unknown Rx Metoprolol [Lopressor TAB] 12.5 mg PO BID #60 tablet 10/17/15 05/05/16 Unknown Rx Montelukast [Singulair] 10 mg PO QPM #30 tablet 10/17/15 05/05/16 Unknown Rx Tamsulosin [Flomax] 0.4 mg PO QDAY #30 capsule 10/17/15 05/05/16 Unknown Rx buPROPion XL [Wellbutrin XL] 150 mg PO Q24HR #30 tablet 10/17/15 05/05/16 Unknown Rx hydroCHLOROthiazide [HCTZ] 25 mg PO QDAY #30 tablet 10/17/15 05/05/16 Unknown Rx methOCARBAMOL [Robaxin TAB] 500 mg PO BID #20 tab 10/17/15 05/05/16 Unknown Rx levoFLOXacin [Levaquin] 750 mg PO QDAY #7 tablet 04/19/16 05/05/16 Unknown Rx predniSONE [Deltasone] 3 tab PO QDAY #15 tab 04/19/16 05/05/16 Unknown Rx Azithromycin [Zithromax TAB] 250 mg PO QDAY #6 tablet 05/07/16 Unknown Rx Hydrocodone/Chlorphen P-Stirex 5 ml PO BID PRN #250 ml 05/07/16 Unknown Rx [HYDROcodone-Chlorphen ER Susp] Prednisone [predniSONE 10 mg 10 mg PO .TAPER #1 tab.ds.pk 05/07/16 Unknown Rx (6-Day Pack, 21 Tabs)] Albuterol Sulfate [Albuterol 0.63% 0.63 mg IH TID PRN #90 ml 04/01/17 Unknown Rx NEBS] Prednisone [predniSONE 10 mg 10 mg PO .TAPER #1 tab.ds.pk 04/01/17 Unknown Rx (6-Day Pack, 21 Tabs)] ALBUTEROL Inhaler [ProAir HFA 2 puff IH QID PRN #1 inhalation 04/19/17 Unknown Rx Inhaler] Ibuprofen [Motrin 800 MG tab] 800 mg PO Q8HR PRN #20 tablet 04/19/17 Unknown Rx Tiotropium [Spiriva] 18 mcg IH QDAY #1 cap 04/19/17 Unknown Rx oxyCODONE /ACETAMINOPHEN [Percocet 1 - 2 tab PO Q6HR PRN #10 tablet 04/19/17 Unknown Rx 5/325 mg] methylPREDNISolone [Medrol Dose 4 mg PO DAILY #1 pack 07/30/17 Unknown Rx Declan] Azithromycin 250 mg PO DAILY #20 tablet 01/16/18 Unknown Rx Budesoni/Formotero 160-4.5(Nf) 2 puff IH BID #1 inha 01/16/18 Unknown Rx [Symbicort 160-4.5 (Nf)] Omeprazole 20 mg PO DAILY #30 tab 01/16/18 Unknown Rx Tamsulosin HCl [Flomax] 0.4 mg PO DAILY #30 capsule 01/16/18 Unknown Rx hydroCHLOROthiazide [HCTZ] 25 mg PO QDAY #30 tablet 01/16/18 Unknown Rx ED Physical Exam - General Limitations: No Limitations General appearance: alert, in no apparent distress - Head Head exam: Present: atraumatic, normocephalic, normal inspection - Eye Eye exam: Present: normal appearance - ENT ENT exam: Present: normal exam, normal orophraynx, mucous membranes moist - Neck Neck exam: Present: normal inspection, full ROM. Absent: tenderness, meningismus, lymphadenopathy, thyromegaly - Respiratory Respiratory exam: Present: normal lung sounds bilaterally, wheezes. Absent: respiratory distress, rales, rhonchi, stridor, chest wall tenderness, accessory muscle use, decreased breath sounds, prolonged expiratory - Cardiovascular Cardiovascular Exam: Present: regular rate, normal rhythm, normal heart sounds. Absent: bradycardia, tachycardia, irregular rhythm, systolic murmur, diastolic murmur, rubs - GI/Abdominal GI/Abdominal exam: Present: soft, normal bowel sounds, other (surgical wound is dry, clean no warmness or evidence of infection.). Absent: distended, tenderness, guarding, rebound, rigid, diminished bowel sounds, organomegaly, mass, bruit, pulsatile mass, hernia - Extremities Exam Extremities exam: Present: normal inspection, full ROM, normal capillary refill. Absent: pedal edema, joint swelling, calf tenderness - Back Exam Back exam: Present: normal inspection, full ROM. Absent: CVA tenderness (R), CVA tenderness (L), muscle spasm, paraspinal tenderness, vertebral tenderness, rash noted - Neurological Exam Neurological exam: Present: alert, oriented X3, CN II-XII intact, normal gait, reflexes normal - Skin Skin exam: Present: warm, intact, normal color ED Course Vital Signs 01/16/18 07:14 Temperature 97.9 F Pulse Rate 57 L Respiratory 18 Rate Blood Pressure 133/95 O2 Sat by Pulse 98 Oximetry - Reevaluation(s) Reevaluation #1: 01/16/18 10:42 Patient troponin came back slightly elevated, a repeat of troponin came back less than the previous one. Patient is still denying any chest pain. Patient will be discharged home to follow-up with primary care physician and to return to the ER if he started having any chest pain or increasing shortness of breaths. ED Medical Decision Making - Lab Data Result diagrams: 01/16/18 07:27 01/16/18 07:27 Critical care attestation.: If time is entered above; I have spent that time in minutes in the direct care of this critically ill patient, excluding procedure time. ED Disposition Clinical Impression: COPD exacerbation, Removal of guanaco, Hypertension, Elevated troponin Disposition: DC- TO HOME OR SELFCARE Is pt being admited?: No Condition: Stable Instructions: Chronic Bronchitis (ED), Hypertension (ED) Prescriptions: Azithromycin 250 mg PO DAILY #20 tablet Budesoni/Formotero 160-4.5(Nf) [Symbicort 160-4.5 (Nf)] 2 puff IH BID #1 inha hydroCHLOROthiazide [HCTZ] 25 mg PO QDAY #30 tablet Omeprazole 20 mg PO DAILY #30 tab. Tamsulosin HCl [Flomax] 0.4 mg PO DAILY #30 capsule Referrals: RANDI ANGUIANO MD [Referring] - 3-5 Days
[2018-01-16] MEDS ORDERED: DUONEB *Not for PRN Use IH ONE (08:11)
[2018-01-16 08:20] LABS: Chol/HDL Ratio 3.18 %; HDL Cholesterol 49 mg/dL (40-59); LDL Cholesterol,Direct 102 mg/dL (50-130)
[2018-01-16 11:35] VITALS: BP 98/74
== END 2018-01-16 11:45 | disposition home or self-care (01) ==
LOC: ED 07:11
DX: J44.1 Chronic obstructive pulmonary disease with (acute) exacerbation (principal); I10 Essential (primary) hypertension; Z90.49 Acquired absence of other specified parts of digestive tract; Z79.82 Long term (current) use of aspirin; Z88.0 Allergy status to penicillin; Z87.891 Personal history of nicotine dependence
CPT/HCPCS: 36415; 71046; 80048; 80061; 84484; 85025; 93005; 93010; 94640

== ENCOUNTER 2018-06-09 08:48 | Inpatient (IN) | payer MEDICAID ==
--- NOTE | 2018-06-09 10:36 | Emergency Department Report ---
ED Shortness of Breath HPI - General Chief Complaint: Dyspnea/Respdistress Stated Complaint: DIFFICULTY BREATHING Time Seen by Provider: 06/09/18 10:20 Source: patient, EMS Mode of arrival: Stretcher Limitations: No Limitations - History of Present Illness Initial Comments: 62-year-old male with history of COPD. He gave himself 3 breathing treatments at home and then had call an ambulance. An wrap he received additional nebs which he said was of benefit. He states he did not receive any IV medication. He is not currently on steroids. Oddly he states that he takes azithromycin " 3 times a week for the last year". Does not describe the use of CPAP. He is on home O2. He does not describe chest pain recent fever or chills. He has had no recent productive sputum. He was admitted to this facility recently on the following circumstances: 60 YO Male admitted for Acute Respiratory Failure secondary to COPD exacerbation. Pt treated with [facility] COPD protocol. Pt convalesced well during hospital course. Pt symptoms improved with therapy. Pt medically optimized and back to usual state of health. Pt evaluated prior to discharge but no significant new physical exam findings since admission. Pt subsequently discharged home and instructed to f/u pcp 1wk., pulmonary PRN. 35 minutes dedicated to patient discharge and education. Disposition: DISCHARGED TO HOME OR SELFCARE - Discharge Diagnoses (1) Acute and chronic respiratory failure ([id number]) Status: Acute (2) COPD exacerbation Status: Acute (3) Hypertension Status: Chronic (4) DVT prophylaxis MD Complaint: shortness of breath -: Gradual, hour(s) Known History Of: COPD Associated Symptoms: denies other symptoms - Related Data Previous Rx's Medication Instructions Recorded Last Taken Type Albuterol *Only Ed* [Proventil 2.5 mg IH Q4HRT PRN #120 nebu 07/26/14 Unknown Rx 0.5% NEBS] Ipratropium/Albuterol Sulfate 1 ampul IH QID #120 ampul.neb 07/26/14 Unknown Rx [DUONEB *Not for PRN Use*] Benzonatate [Tessalon Perles] 100 mg PO Q8HR PRN #30 capsule 11/03/14 Unknown Rx Acetaminophen/Codeine [Tylenol 1 tab PO Q6H PRN #15 tab 10/17/15 Unknown Rx /Codeine # 3 tab] Albuterol Sulfate [Ventolin HFA] 2 puff IH Q4H PRN #1 hfa.aer.ad 10/17/15 Unknown Rx Aspirin EC [Aspirin Enteric Coated 325 mg PO QDAY #30 tablet 10/17/15 Unknown Rx TAB] Budesoni/Formotero 160-4.5(Nf) 2 puff IH BID #1 inha 10/17/15 Unknown Rx [Symbicort 160-4.5 (Nf)] Lisinopril [Zestril TAB] 10 mg PO QDAY #30 tablet 10/17/15 Unknown Rx Loratadine [Claritin] 10 mg PO QDAY #30 tablet 10/17/15 Unknown Rx Metoprolol [Lopressor TAB] 12.5 mg PO BID #60 tablet 10/17/15 Unknown Rx Montelukast [Singulair] 10 mg PO QPM #30 tablet 10/17/15 Unknown Rx Tamsulosin [Flomax] 0.4 mg PO QDAY #30 capsule 10/17/15 Unknown Rx buPROPion XL [Wellbutrin XL] 150 mg PO Q24HR #30 tablet 10/17/15 Unknown Rx hydroCHLOROthiazide [HCTZ] 25 mg PO QDAY #30 tablet 10/17/15 Unknown Rx methOCARBAMOL [Robaxin TAB] 500 mg PO BID #20 tab 10/17/15 Unknown Rx levoFLOXacin [Levaquin] 750 mg PO QDAY #7 tablet 04/19/16 Unknown Rx predniSONE [Deltasone] 3 tab PO QDAY #15 tab 04/19/16 Unknown Rx Azithromycin [Zithromax TAB] 250 mg PO QDAY #6 tablet 05/07/16 Unknown Rx Hydrocodone/Chlorphen P-Stirex 5 ml PO BID PRN #250 ml 05/07/16 Unknown Rx [HYDROcodone-Chlorphen ER Susp] Prednisone [predniSONE 10 mg 10 mg PO .TAPER #1 tab.ds.pk 05/07/16 Unknown Rx (6-Day Pack, 21 Tabs)] Albuterol Sulfate [Albuterol 0.63% 0.63 mg IH TID PRN #90 ml 04/01/17 Unknown Rx NEBS] Prednisone [predniSONE 10 mg 10 mg PO .TAPER #1 tab.ds.pk 04/01/17 Unknown Rx (6-Day Pack, 21 Tabs)] ALBUTEROL Inhaler (OR & NICU) 2 puff IH QID PRN #1 inhalation 04/19/17 Unknown Rx [ProAir HFA Inhaler] Ibuprofen [Motrin 800 MG tab] 800 mg PO Q8HR PRN #20 tablet 04/19/17 Unknown Rx Tiotropium [Spiriva] 18 mcg IH QDAY #1 cap 04/19/17 Unknown Rx oxyCODONE /ACETAMINOPHEN [Percocet 1 - 2 tab PO Q6HR PRN #10 tablet 04/19/17 Unknown Rx 5/325 mg] methylPREDNISolone [Medrol Dose 4 mg PO DAILY #1 pack 07/30/17 Unknown Rx Declan] Azithromycin 250 mg PO DAILY #20 tablet 01/16/18 Unknown Rx Budesoni/Formotero 160-4.5(Nf) 2 puff IH BID #1 inha 01/16/18 Unknown Rx [Symbicort 160-4.5 (Nf)] Loratadine 10 mg PO DAILY #30 capsule 01/16/18 Unknown Rx Montelukast [Singulair] 10 mg PO QPM #30 tablet 01/16/18 Unknown Rx Omeprazole 20 mg PO DAILY #30 tab.rap 01/16/18 Unknown Rx Tamsulosin HCl [Flomax] 0.4 mg PO DAILY #30 capsule 01/16/18 Unknown Rx hydroCHLOROthiazide [HCTZ] 25 mg PO QDAY #30 tablet 01/16/18 Unknown Rx Allergies Allergy/AdvReac Type Severity Reaction Status Date / Time Penicillins Allergy Rash Verified 06/09/18 09:29 ED Review of Systems ROS: Stated complaint: DIFFICULTY BREATHING Other details as noted in HPI Constitutional: denies: chills, fever Eyes: denies: eye pain, eye discharge, vision change ENT: denies: ear pain, throat pain Respiratory: shortness of breath, wheezing. denies: cough Cardiovascular: denies: chest pain, palpitations Endocrine: no symptoms reported Gastrointestinal: denies: abdominal pain, nausea, diarrhea Genitourinary: denies: urgency, dysuria Musculoskeletal: denies: back pain, joint swelling, arthralgia Skin: denies: rash, lesions Neurological: denies: headache, weakness, paresthesias Psychiatric: denies: anxiety, depression Hematological/Lymphatic: denies: easy bleeding, easy bruising ED Past Medical Hx - Past Medical History Previous Medical History?: Yes Hx Hypertension: Yes Hx CVA: No Hx Heart Attack/AMI: No Hx Congestive Heart Failure: No Hx Diabetes: No Hx Deep Vein Thrombosis: No Hx Pulmonary Embolism: No Hx GERD: No Hx Liver Disease: No Hx Renal Disease: No Hx Sickle Cell Disease: No Hx Arthritis: No Hx Headaches / Migraines: No Hx Seizures: No Hx Kidney Stones: No Hx Psychiatric Treatment: No Hx Asthma: Yes Hx COPD: Yes (2-3L per [place] prn) Hx Tuberculosis: No Hx Dementia: No Hx HIV: No Additional medical history: candidate for lung transplant - Surgical History Past Surgical History?: Yes Hx Coronary Stent: No Hx Open Heart Surgery: No Hx Pacemaker: No Hx Internal Defibrillator: No Hx Cholecystectomy: Yes Hx Appendectomy: Yes Hx Breast Surgery: No - Social History Smoking Status: Former Smoker Substance Use Type: None - Medications Home Medications: Home Medications Medication Instructions Recorded Confirmed Last Taken Type Albuterol *Only Ed* [Proventil 2.5 mg IH Q4HRT PRN #120 nebu 07/26/14 05/05/16 Unknown Rx 0.5% NEBS] Ipratropium/Albuterol Sulfate 1 ampul IH QID #120 ampul.neb 07/26/14 05/05/16 Unknown Rx [DUONEB *Not for PRN Use*] Benzonatate [Tessalon Perles] 100 mg PO Q8HR PRN #30 capsule 11/03/14 05/05/16 Unknown Rx Acetaminophen/Codeine [Tylenol 1 tab PO Q6H PRN #15 tab 10/17/15 05/05/16 Unknown Rx /Codeine # 3 tab] Albuterol Sulfate [Ventolin HFA] 2 puff IH Q4H PRN #1 hfa.aer.ad 10/17/15 05/05/16 Unknown Rx Aspirin EC [Aspirin Enteric Coated 325 mg PO QDAY #30 tablet 10/17/15 05/05/16 Unknown Rx TAB] Budesoni/Formotero 160-4.5(Nf) 2 puff IH BID #1 inha 10/17/15 05/05/16 Unknown Rx [Symbicort 160-4.5 (Nf)] Lisinopril [Zestril TAB] 10 mg PO QDAY #30 tablet 10/17/15 05/05/16 Unknown Rx Loratadine [Claritin] 10 mg PO QDAY #30 tablet 10/17/15 05/05/16 Unknown Rx Metoprolol [Lopressor TAB] 12.5 mg PO BID #60 tablet 10/17/15 05/05/16 Unknown Rx Montelukast [Singulair] 10 mg PO QPM #30 tablet 10/17/15 05/05/16 Unknown Rx Tamsulosin [Flomax] 0.4 mg PO QDAY #30 capsule 10/17/15 05/05/16 Unknown Rx buPROPion XL [Wellbutrin XL] 150 mg PO Q24HR #30 tablet 10/17/15 05/05/16 Unknown Rx hydroCHLOROthiazide [HCTZ] 25 mg PO QDAY #30 tablet 10/17/15 05/05/16 Unknown Rx methOCARBAMOL [Robaxin TAB] 500 mg PO BID #20 tab 10/17/15 05/05/16 Unknown Rx levoFLOXacin [Levaquin] 750 mg PO QDAY #7 tablet 04/19/16 05/05/16 Unknown Rx predniSONE [Deltasone] 3 tab PO QDAY #15 tab 04/19/16 05/05/16 Unknown Rx Azithromycin [Zithromax TAB] 250 mg PO QDAY #6 tablet 05/07/16 Unknown Rx Hydrocodone/Chlorphen P-Stirex 5 ml PO BID PRN #250 ml 05/07/16 Unknown Rx [HYDROcodone-Chlorphen ER Susp] Prednisone [predniSONE 10 mg 10 mg PO .TAPER #1 tab.ds.pk 05/07/16 Unknown Rx (6-Day Pack, 21 Tabs)] Albuterol Sulfate [Albuterol 0.63% 0.63 mg IH TID PRN #90 ml 04/01/17 Unknown Rx NEBS] Prednisone [predniSONE 10 mg 10 mg PO .TAPER #1 tab.ds.pk 04/01/17 Unknown Rx (6-Day Pack, 21 Tabs)] ALBUTEROL Inhaler (OR & NICU) 2 puff IH QID PRN #1 inhalation 04/19/17 Unknown Rx [ProAir HFA Inhaler] Ibuprofen [Motrin 800 MG tab] 800 mg PO Q8HR PRN #20 tablet 04/19/17 Unknown Rx Tiotropium [Spiriva] 18 mcg IH QDAY #1 cap 04/19/17 Unknown Rx oxyCODONE /ACETAMINOPHEN [Percocet 1 - 2 tab PO Q6HR PRN #10 tablet 04/19/17 Unknown Rx 5/325 mg] methylPREDNISolone [Medrol Dose 4 mg PO DAILY #1 pack 07/30/17 Unknown Rx Declan] Azithromycin 250 mg PO DAILY #20 tablet 01/16/18 Unknown Rx Budesoni/Formotero 160-4.5(Nf) 2 puff IH BID #1 inha 01/16/18 Unknown Rx [Symbicort 160-4.5 (Nf)] Loratadine 10 mg PO DAILY #30 capsule 01/16/18 Unknown Rx Montelukast [Singulair] 10 mg PO QPM #30 tablet 01/16/18 Unknown Rx Omeprazole 20 mg PO DAILY #30 tab.rap.dr 01/16/18 Unknown Rx Tamsulosin HCl [Flomax] 0.4 mg PO DAILY #30 capsule 01/16/18 Unknown Rx hydroCHLOROthiazide [HCTZ] 25 mg PO QDAY #30 tablet 01/16/18 Unknown Rx ED Physical Exam - General Limitations: No Limitations General appearance: alert, in no apparent distress - Head Head exam: Present: atraumatic, normocephalic - Eye Eye exam: Present: normal appearance. Absent: scleral icterus - ENT ENT exam: Present: mucous membranes moist - Neck Neck exam: Present: normal inspection - Respiratory Respiratory exam: Present: wheezes, decreased breath sounds, other. Absent: respiratory distress - Cardiovascular Cardiovascular Exam: Present: regular rate, normal rhythm. Absent: systolic murmur, diastolic murmur, rubs, gallop - GI/Abdominal GI/Abdominal exam: Present: soft, normal bowel sounds. Absent: distended, tenderness, guarding, rebound, rigid - Rectal Rectal exam: Present: deferred - Extremities Exam Extremities exam: Present: normal inspection - Back Exam Back exam: Present: normal inspection - Neurological Exam Neurological exam: Present: alert, oriented X3, CN II-XII intact. Absent: motor sensory deficit - Psychiatric Psychiatric exam: Present: normal affect, normal mood - Skin Skin exam: Present: warm, dry, intact, normal color. Absent: rash ED Course Vital Signs 06/09/18 06/09/18 08:52 09:48 Temperature 98.4 F Pulse Rate 108 H Respiratory 16 18 Rate Blood Pressure 113/83 O2 Sat by Pulse 95 95 Oximetry - Reevaluation(s) Reevaluation #1: She has very tight despite multiple nebs 3 at home and 2 in the field. He will be given magnesium and Solu-Medrol. He will be given additional meds and adm itted to the hospitalist service. We discussed his elevates CO2 of 35 on his BMP. I will defer to Dr. Wilson as to whether his care would benefit from an ABG. I am sure he has hypoxic respiratory failure with COPD exacerbation as he is oxygen dependent and arrived via ambulance with persistent wheezing. 06/09/18 11:28 ED Medical Decision Making - Lab Data Result diagrams: 06/09/18 10:08 06/09/18 10:08 Laboratory Results - last 24 hr 06/09/18 06/09/18 10:08 10:08 WBC 6.5 RBC 4.89 Hgb 14.7 Hct 43.8 MCV 90 MCH 30 MCHC 34 RDW 14.8 Plt Count 226 Lymph % (Auto) 20.2 [place] % (Auto) 11.5 H Eos % (Auto) 4.6 H Baso % (Auto) 0.6 Lymph # 1.3 [place] # 0.7 Eos # 0.3 Baso # 0.0 Seg Neutrophils % 63.1 Seg Neutrophils # 4.1 Sodium 142 Potassium 3.1 L Chloride 94.5 L Carbon Dioxide 35 H Anion Gap 16 BUN 12 Creatinine 1.3 Estimated GFR > 60 BUN/Creatinine Ratio 9 Glucose 101 H Calcium 9.2 - EKG Data -: EKG Interpreted by Me EKG shows normal: sinus rhythm Rate: normal - EKG Data Interpretation: no acute changes, other (bifascicular block that is right bundle branch block/LAFB. Associated repolarization abnormality) - Radiology Data interpreted by me: I don't see anything acute on his chest x-ray Critical care attestation.: If time is entered above; I have spent that time in minutes in the direct care of this critically ill patient, excluding procedure time. ED Disposition Clinical Impression: COPD exacerbation, Chronic respiratory failure with hypoxia, Hypokalemia, Bronchospasm Disposition: OP ADMIT IP TO THIS HOSP Is pt being admited?: Yes Does the pt Need Aspirin: Yes Condition: Stable Instructions: Chronic Bronchitis (ED) Referrals: PRIMARY CARE, [Primary Care Provider] - 3-5 Days Time of Disposition: 11:30
[2018-06-09 10:38] LABS: Basophils % (Auto) 0.6 % (0.0-1.8); Eosinophils # (Auto) 0.3 K/mm3 (0.0-0.4); Eosinophils % (Auto) 4.6 % (0.0-4.3); Hematocrit 43.8 % (35.5-45.6); Hemoglobin 14.7 gm/dl (11.8-15.2); Lymphocytes # (Auto) 1.3 K/mm3 (1.2-5.4); Lymphocytes % (Auto) 20.2 % (13.4-35.0); Mean Corpuscular HGB Conc 34 % (32-34); Mean Corpuscular Volume 90 fl (84-94); Monocytes # (Auto) 0.7 K/mm3 (0.0-0.8); Monocytes % (Auto) 11.5 % (0.0-7.3); Platelet Count 226 K/mm3 (140-440); Red Blood Count 4.89 M/mm3 (3.65-5.03); Red Cell Distribution Width 14.8 % (13.2-15.2)
[2018-06-09] MEDS ORDERED: DUONEB *Not for PRN Use IH ONE (10:51)
[2018-06-09] MEDS ORDERED: MAGNESIUM SULFATE 2GM/50ML 2 GM/50 ML BAG IV ONE (10:52)
[2018-06-09] MEDS ORDERED: SOLU-Medrol IV ONE (10:52)
[2018-06-09 11:00] LABS: BUN/Creatinine Ratio 9; Blood Urea Nitrogen 12 mg/dL (9-20); Calcium 9.2 mg/dL (8.4-10.2); Hemolysis Index 6
--- NOTE | 2018-06-09 11:08 | XRay Report ---
AP CHEST: HISTORY: Shortness of breath Bullous changes throughout the right upper lobe are stable since 01/16/18. Underlying emphysematous changes are suspected as well. No evidence for pneumonia, pleural effusion or pneumothorax. Normal heart and mediastinal structures. Normal bony thorax. IMPRESSION: Emphysematous changes. No acute process identified.
[2018-06-09] MEDS ORDERED: K-DUR PO ONE ×2 (11:17→13:19)
[2018-06-09] MEDS ORDERED: BABY ASPIRIN PO ONE (11:49)
--- NOTE | 2018-06-09 11:51 | History and Physical Report ---
History of Present Illness Chief complaint: I can't breathe History of present illness: 62 YO Male with HTN, COPD, Chronic Respiratory Failure on 2-3L supplemental oxygen presents to ED for evaluation. Pt states that he has experienced shortness of breath over the past 1 day with worsening symptoms over the past 6 hours. Pt acknowledges increased nebulizer therapy, as well as increased productive cough with clear sputum. Pt acknowledges dypsnea with exertion, dypsnea at rest, as decreased exercise tolerance. EMS notified and upon arrival the patient was found to be in distress. Pt transported to [facility] for further care and evaluation. Pt seen and evaluated in ED and found to have COPD Exacerbation complicated by Acute Hypoxemic Respiratory Failure. Pt admitted to medical floor. Pt denies fever, chills, CP, Palpitations, NVD, Traums, BRBPR, Skin rash, or recent ill contacts. Past History Past Medical History: COPD, hypertension Past Surgical History: appendectomy, cholecystectomy Social history: single. denies: smoking, alcohol abuse, prescription drug abuse Family history: hypertension Medications and Allergies Allergies Allergy/AdvReac Type Severity Reaction Status Date / Time Penicillins Allergy Rash Verified 06/09/18 09:29 Home Medications Medication Instructions Recorded Confirmed Last Taken Type Albuterol Sulfate [Ventolin HFA] 2 puff IH Q4H PRN #1 hfa.aer.ad 10/17/15 06/09/18 Unknown Rx Lisinopril [Zestril TAB] 10 mg PO QDAY #30 tablet 10/17/15 06/09/18 Unknown Rx buPROPion XL [Wellbutrin XL] 150 mg PO Q24HR #30 tablet 10/17/15 06/09/18 Unknown Rx Albuterol Sulfate [Albuterol 0.63% 0.63 mg IH TID PRN #90 ml 04/01/17 06/09/18 Unknown Rx NEBS] Tiotropium [Spiriva] 18 mcg IH QDAY #1 cap 04/19/17 06/09/18 Unknown Rx Budesoni/Formotero 160-4.5(Nf) 2 puff IH BID #1 inha 01/16/18 06/09/18 Unknown Rx [Symbicort 160-4.5 (Nf)] Montelukast [Singulair] 10 mg PO QPM #30 tablet 01/16/18 06/09/18 Unknown Rx Omeprazole 20 mg PO DAILY #30 tab 01/16/18 06/09/18 Unknown Rx Tamsulosin HCl [Flomax] 0.4 mg PO DAILY #30 capsule 01/16/18 06/09/18 Unknown Rx hydroCHLOROthiazide [HCTZ] 25 mg PO QDAY #30 tablet 01/16/18 06/09/18 Unknown Rx Review of Systems Constitutional: no weight loss, no weight gain, no fever, no chills Ears, nose, mouth and throat: no ear pain, no ear discharge, no tinnitis, no decreased hearing, no nose pain Cardiovascular: shortness of breath, dyspnea on exertion, decreased exercise tolerance, no chest pain, no orthopnea, no palpitations, no rapid/irregular heart beat Respiratory: cough, cough with sputum, excessive sputum, shortness of breath, no pleurisy Gastrointestinal: no nausea, no vomiting, no diarrhea Genitourinary Male: no hematuria, no flank pain, no discharge, no urinary frequency Rectal: no pain, no incontinence, no bleeding Musculoskeletal: no neck stiffness, no neck pain, no shooting arm pain, no arm numbness/tingling, no low back pain Integumentary: no rash, no pruritis, no redness, no sores, no jaundice Neurological: no transient paralysis, no paralysis, no weakness, no parathesias, no numbness, no tingling, no seizures, no syncope, no tremors Psychiatric: no anxiety, no memory loss, no change in sleep habits, no sleep disturbances, no insomnia, no hypersomnia, no change in appetite Endocrine: no cold intolerance, no heat intolerance, no polyphagia, no excessive thirst, no polydipsia, no polyuria, no nocturia, no excessive sweating Hematologic/Lymphatic: no easy bruising, no easy bleeding, no lymphadenopathy Allergic/Immunologic: no urticaria, no allergic rhinitis, no wheezing, no persistent infections, no anaphylaxis, no angioedema Exam - Constitutional Vitals: Temp Pulse Resp BP Pulse Ox 98.4 F 108 H 18 113/83 95 06/09/18 08:52 06/09/18 08:52 06/09/18 09:48 06/09/18 08:52 06/09/18 09:48 General appearance: Present: mild distress - EENT Eyes: Present: PERRL ENT: hearing intact, clear oral mucosa - Neck Neck: Present: supple, normal ROM - Respiratory Respiratory effort: normal Respiratory: bilateral: diminished, rhonchi - Cardiovascular Heart Sounds: Present: S1 & S2. Absent: rub, click - Extremities Extremities: pulses symmetrical, No edema Peripheral Pulses: within normal limits - Abdominal General gastrointestinal: Present: soft, non-tender, non-distended, normal bowel sounds Male genitourinary: Present: normal - Integumentary Integumentary: Present: clear, warm, dry - Musculoskeletal Musculoskeletal: gait normal, strength equal bilaterally - Psychiatric Psychiatric: appropriate mood/affect, intact judgment & insight - Neurologic Neurologic: CNII-XII intact, moves all extremities Results - Labs CBC & Chem 7: 06/09/18 10:08 06/09/18 10:08 Labs: Abnormal lab results 06/09/18 06/09/18 Range/Units 10:08 10:08 [place] % (Auto) 11.5 H (0.0-7.3) % Eos % (Auto) 4.6 H (0.0-4.3) % Potassium 3.1 L (3.6-5.0) mmol/L Chloride 94.5 L (98-107) mmol/L Carbon Dioxide 35 H (22-30) mmol/L Glucose 101 H (75-100) mg/dL Assessment and Plan - Patient Problems (1) Acute and chronic respiratory failure ([id number]) Current Visit: No Status: Acute Qualifiers: Respiratory failure complication: hypoxia Qualified Code(s): J96.21 - Acute and chronic respiratory failure with hypoxia Plan to address problem: Supplemental oxygen, nebulizer therapy, NIPPV as clinically indicated, CT Angio chest (2) Debility Current Visit: Yes Status: Acute Plan to address problem: PT consulted, (3) COPD exacerbation Current Visit: Yes Status: Acute Plan to address problem: IV steroid therapy, supplemental oxygen, IV antibiotic therapy, (4) DVT prophylaxis Current Visit: Yes Status: Acute Plan to address problem: SCD to BLE while in bed.
[2018-06-09] MEDS ORDERED: SODIUM CHLORIDE FLUSH SYRINGE 10 ML IV PRN (12:01)
[2018-06-09] MEDS ORDERED: ZOFRAN IV PRN (12:01)
[2018-06-09] MEDS ORDERED: TYLENOL PO PRN (12:01)
[2018-06-09] MEDS ORDERED: TESSALON PERLES PO PRN (12:03)
[2018-06-09] MEDS ORDERED: PROAIR IH PRN (12:03)
[2018-06-09] MEDS ORDERED: HYDROCODONE PO PRN (12:03)
[2018-06-09] MEDS ORDERED: CHLORPHEN P STIREX PO PRN (12:03)
[2018-06-09] MEDS ORDERED: PROVENTIL IH PRN (12:59)
--- NOTE | 2018-06-09 14:49 | Cat Scan Report ---
FINAL REPORT EXAM: CT ANGIO CHEST HISTORY: dypsnea COMPARISON: None. TECHNIQUE: Multiple contiguous axial images were obtained through the chest after administration of IV contrast. Reformatted sagittal and coronal images were available for review. FINDINGS: Medical devices: None. Thyroid: Normal. Lymph nodes: No significant mediastinal, hilar, or axillary lymphadenopathy. Vasculature: No filling defect within the pulmonary artery to suggest pulmonary embolism. Normal peggy sylvester of the thoracic aorta. Conventional branching pattern of the aortic arch. Heart: Normal heart size. Other mediastinal structures: Normal. Lung parenchyma: Extensive centrilobular emphysematous change, with large peripheral bullae. Scarring in the right lung apex. Subtle ground-glass opacities in the medial right lung apex. Airways: Patent. No bronchiectasis. Pleura: No pleural effusion or pneumothorax. Chest wall and spine: No acute fracture or dislocation. No suspicious osseous lesions. Upper Abdomen: No acute abnormality. IMPRESSION: 1. No evidence of pulmonary embolism. 2. Extensive emphysematous change throughout both lungs with large peripheral bullae. 3. Subtle ground-glass opacities in the medial right lung apex, that are nonspecific, but may represe nt infection or inflammation.
[2018-06-09] MEDS: SINGULAIR PO SCH (17:50)
[2018-06-09] MEDS: PERCOCET 5/325 PO PRN (17:55)
[2018-06-09] MEDS ORDERED: PERCOCET 5/325 ONE (17:55)
[2018-06-09] MEDS: BROVANA NEBU IH SCH (20:57)
[2018-06-09] MEDS: PULMICORT IH SCH ×2 (20:57→21:53)
[2018-06-09] MEDS: SOLU-Medrol IV SCH (21:57)
[2018-06-09] MEDS: ROBAXIN PO SCH (21:57)
[2018-06-09] MEDS: SODIUM CHLORIDE FLUSH SYRINGE 10 ML IV SCH (21:58)
[2018-06-09] MEDS ORDERED: NON-FORMULARY (Budesoni/Formotero 160-4.5(Nf) 2 PUFF) IH SCH (22:00)
[2018-06-10] MEDS: PERCOCET 5/325 PO PRN ×4 (00:17→18:19)
[2018-06-10] MEDS ORDERED: HYDROMET PO PRN (07:26)
[2018-06-10] MEDS: PULMICORT IH SCH ×2 (07:49→20:18)
[2018-06-10] MEDS: SPIRIVA IH SCH ×2 (07:49→10:42)
[2018-06-10] MEDS: BROVANA NEBU IH SCH ×2 (07:50→20:18)
--- NOTE | 2018-06-10 09:52 | Progress Note ---
Assessment and Plan Assessment and plan: --Acute on chronic hypoxic respiratory failure; Secondary to acute exacerbation of COPD, oxygen titrated O2 sats to within 90% Nebulizers, IV steroids, IV antibiotics, supportive care --Acute exacerbation of COPD; oxygen nebulizers and steroids antibiotics Evaluation for home oxygen upon discharge --Hypokalemia; replenish per protocol and monitor levels --Hypertension; moderate control, continue current antihypertensives and when necessary medications --History of BPH; continue Flomax --DVT prophylaxis; Lovenox Plan of care reviewed with the patient Possible discharge in 1-2 days if stable History Interval history: Patient seen and examined medical records reviewed Patient feels slightly better no new complaints Alert awake oriented Vital signs noted Hospitalist Physical - Constitutional Vitals: Temp Pulse Resp BP Pulse Ox 98.2 F 110 H 20 119/91 96 06/10/18 05:39 06/10/18 08:23 06/10/18 08:23 06/10/18 05:39 06/10/18 07:52 General appearance: Present: mild distress, well-nourished - EENT Eyes: Present: PERRL, EOM intact - Neck Neck: Present: supple, normal ROM - Respiratory Respiratory effort: normal Respiratory: bilateral: diminished, wheezing, negative: rales, rhonchi - Cardiovascular Rhythm: regular Heart Sounds: Present: S1 & S2 - Extremities Extremities: no ischemia, No edema - Abdominal General gastrointestinal: soft, non-tender, non-distended, normal bowel sounds - Integumentary Integumentary: Present: clear, warm - Psychiatric Psychiatric: appropriate mood/affect, cooperative - Neurologic Neurologic: CNII-XII intact, moves all extremities Results - Labs CBC & Chem 7: 06/09/18 10:08 06/09/18 10:08 Labs: Laboratory Last Values WBC 6.5 K/mm3 (4.5-11.0) 06/09/18 10:08 RBC 4.89 M/mm3 (3.65-5.03) 06/09/18 10:08 Hgb 14.7 gm/dl (11.8-15.2) 06/09/18 10:08 Hct 43.8 % (35.5-45.6) 06/09/18 10:08 MCV 90 fl (84-94) 06/09/18 10:08 MCH 30 pg (28-32) 06/09/18 10:08 MCHC 34 % (32-34) 06/09/18 10:08 RDW 14.8 % (13.2-15.2) 06/09/18 10:08 Plt Count 226 K/mm3 (140-440) 06/09/18 10:08 Lymph % (Auto) 20.2 % (13.4-35.0) 06/09/18 10:08 [place] % (Auto) 11.5 % (0.0-7.3) H 06/09/18 10:08 Eos % (Auto) 4.6 % (0.0-4.3) H 06/09/18 10:08 Baso % (Auto) 0.6 % (0.0-1.8) 06/09/18 10:08 Lymph # 1.3 K/mm3 (1.2-5.4) 06/09/18 10:08 [place] # 0.7 K/mm3 (0.0-0.8) 06/09/18 10:08 Eos # 0.3 K/mm3 (0.0-0.4) 06/09/18 10:08 Baso # 0.0 K/mm3 (0.0-0.1) 06/09/18 10:08 Seg Neutrophils % 63.1 % (40.0-70.0) 06/09/18 10:08 Seg Neutrophils # 4.1 K/mm3 (1.8-7.7) 06/09/18 10:08 D-Dimer 169.69 ng/mlDDU (0-234) 06/09/18 12:17 Sodium 142 mmol/L (137-145) 06/09/18 10:08 Potassium 3.1 mmol/L (3.6-5.0) L 06/09/18 10:08 Chloride 94.5 mmol/L (98-107) L 06/09/18 10:08 Carbon Dioxide 35 mmol/L (22-30) H 06/09/18 10:08 Anion Gap 16 mmol/L 06/09/18 10:08 BUN 12 mg/dL (9-20) 06/09/18 10:08 Creatinine 1.3 mg/dL (0.8-1.5) 06/09/18 10:08 Estimated GFR > 60 ml/min 06/09/18 10:08 BUN/Creatinine Ratio 9 % 06/09/18 10:08 Glucose 101 mg/dL (75-100) H 06/09/18 10:08 Calcium 9.2 mg/dL (8.4-10.2) 06/09/18 10:08 Magnesium 1.80 mg/dL (1.7-2.3) 06/09/18 10:08
[2018-06-10] MEDS ORDERED: DELTASONE PO SCH (10:00)
[2018-06-10] MEDS ORDERED: NON-FORMULARY (Omeprazole [Omeprazole] 20 MG) PO SCH (10:00)
[2018-06-10] MEDS ORDERED: NON-FORMULARY (Loratadine [Loratadine] 10 MG) PO SCH (10:00)
[2018-06-10] MEDS: ROBAXIN PO SCH (10:19)
[2018-06-10] MEDS: FLOMAX PO SCH (10:19)
[2018-06-10] MEDS: WELLBUTRIN XL PO SCH ×2 (10:19→18:10)
[2018-06-10] MEDS: ECOTRIN PO SCH (10:19)
[2018-06-10] MEDS: SOLU-Medrol IV SCH (10:19)
[2018-06-10] MEDS: CLARITIN PO SCH (10:19)
[2018-06-10] MEDS: HCTZ PO SCH (10:19)
[2018-06-10] MEDS: ZESTRIL PO SCH (10:19)
[2018-06-10] MEDS: PROTONIX PO SCH (10:20)
[2018-06-10] MEDS: SODIUM CHLORIDE FLUSH SYRINGE 10 ML IV SCH (10:21)
[2018-06-10] MEDS: ZITHROMAX 500 MG in NACL 0.9% 250ML 250 ML IV SCH (10:55)
[2018-06-10] MEDS: PROVENTIL IH PRN ×2 (12:38→16:35)
[2018-06-10] MEDS: SINGULAIR PO SCH (18:15)
[2018-06-11] MEDS: ROBAXIN PO SCH ×3 (02:52→22:00)
[2018-06-11] MEDS: SOLU-Medrol IV SCH ×3 (02:53→22:01)
[2018-06-11] MEDS: SODIUM CHLORIDE FLUSH SYRINGE 10 ML IV SCH ×3 (02:54→22:02)
[2018-06-11] MEDS: TYLENOL #3 PO PRN ×2 (06:24→16:58)
[2018-06-11] MEDS: PULMICORT IH SCH ×2 (08:32→19:17)
[2018-06-11] MEDS: BROVANA NEBU IH SCH ×2 (08:32→19:16)
[2018-06-11] MEDS: WELLBUTRIN XL PO SCH (11:10)
[2018-06-11] MEDS: CLARITIN PO SCH (11:11)
[2018-06-11] MEDS: ZESTRIL PO SCH (11:11)
[2018-06-11] MEDS: FLOMAX PO SCH (11:11)
[2018-06-11] MEDS: PROTONIX PO SCH (11:11)
[2018-06-11] MEDS: ECOTRIN PO SCH (11:12)
[2018-06-11] MEDS: HCTZ PO SCH (11:12)
[2018-06-11] MEDS: PERCOCET 5/325 PO PRN ×2 (11:25→20:03)
[2018-06-11] MEDS: ZITHROMAX 500 MG in NACL 0.9% 250ML 250 ML IV SCH (11:30)
[2018-06-11] MEDS: SPIRIVA IH SCH (13:48)
--- NOTE | 2018-06-11 15:04 | Progress Note ---
Assessment and Plan Assessment and plan: --Acute on chronic hypoxic respiratory failure; Secondary to acute exacerbation of COPD, oxygen titrated O2 sats to within 90% Nebulizers, IV steroids, IV antibiotics, supportive care --Acute exacerbation of COPD; oxygen nebulizers and steroids antibiotics Evaluation for home oxygen upon discharge --Hypokalemia; replenish per protocol and monitor levels --Hypertension; moderate control, continue current antihypertensives and when necessary medications --History of BPH; continue Flomax --DVT prophylaxis; Lovenox Plan of care reviewed with the patient Possible discharge in 1-2 days if stable History Interval history: Sincerely and examined medical records reviewed Patient feels slightly better Alert awake oriented 3 Vital signs noted Hospitalist Physical - Constitutional Vitals: Temp Pulse Resp BP Pulse Ox 97.8 F 93 H 20 131/76 97 06/11/18 10:48 06/11/18 10:48 06/11/18 10:48 06/11/18 11:11 06/11/18 10:48 General appearance: Present: mild distress, well-nourished - EENT Eyes: Present: PERRL, EOM intact - Neck Neck: Present: supple, normal ROM - Respiratory Respiratory effort: normal Respiratory: bilateral: diminished, wheezing, negative: rales, rhonchi - Cardiovascular Rhythm: regular Heart Sounds: Present: S1 & S2 - Extremities Extremities: no ischemia, No edema - Abdominal General gastrointestinal: soft, non-tender, non-distended, normal bowel sounds - Integumentary Integumentary: Present: clear, warm - Psychiatric Psychiatric: appropriate mood/affect, cooperative - Neurologic Neurologic: CNII-XII intact, moves all extremities Results - Labs CBC & Chem 7: 06/09/18 10:08 06/11/18 13:16 Labs: Laboratory Last Values WBC 6.5 K/mm3 (4.5-11.0) 06/09/18 10:08 RBC 4.89 M/mm3 (3.65-5.03) 06/09/18 10:08 Hgb 14.7 gm/dl (11.8-15.2) 06/09/18 10:08 Hct 43.8 % (35.5-45.6) 06/09/18 10:08 MCV 90 fl (84-94) 06/09/18 10:08 MCH 30 pg (28-32) 06/09/18 10:08 MCHC 34 % (32-34) 06/09/18 10:08 RDW 14.8 % (13.2-15.2) 06/09/18 10:08 Plt Count 226 K/mm3 (140-440) 06/09/18 10:08 Lymph % (Auto) 20.2 % (13.4-35.0) 06/09/18 10:08 [place] % (Auto) 11.5 % (0.0-7.3) H 06/09/18 10:08 Eos % (Auto) 4.6 % (0.0-4.3) H 06/09/18 10:08 Baso % (Auto) 0.6 % (0.0-1.8) 06/09/18 10:08 Lymph # 1.3 K/mm3 (1.2-5.4) 06/09/18 10:08 [place] # 0.7 K/mm3 (0.0-0.8) 06/09/18 10:08 Eos # 0.3 K/mm3 (0.0-0.4) 06/09/18 10:08 Baso # 0.0 K/mm3 (0.0-0.1) 06/09/18 10:08 Seg Neutrophils % 63.1 % (40.0-70.0) 06/09/18 10:08 Seg Neutrophils # 4.1 K/mm3 (1.8-7.7) 06/09/18 10:08 D-Dimer 169.69 ng/mlDDU (0-234) 06/09/18 12:17 Sodium 142 mmol/L (137-145) 06/09/18 10:08 Potassium 3.9 mmol/L (3.6-5.0) D 06/11/18 13:16 Chloride 94.5 mmol/L (98-107) L 06/09/18 10:08 Carbon Dioxide 35 mmol/L (22-30) H 06/09/18 10:08 Anion Gap 16 mmol/L 06/09/18 10:08 BUN 12 mg/dL (9-20) 06/09/18 10:08 Creatinine 1.3 mg/dL (0.8-1.5) 06/09/18 10:08 Estimated GFR > 60 ml/min 06/09/18 10:08 BUN/Creatinine Ratio 9 % 06/09/18 10:08 Glucose 101 mg/dL (75-100) H 06/09/18 10:08 Calcium 9.2 mg/dL (8.4-10.2) 06/09/18 10:08 Magnesium 1.90 mg/dL (1.7-2.3) 06/11/18 13:16
[2018-06-11] MEDS: SINGULAIR PO SCH (16:59)
[2018-06-11] MEDS: LOVENOX SUB-Q SCH ×2 (22:01)
[2018-06-12] MEDS: TYLENOL #3 PO PRN (01:33)
[2018-06-12] MEDS: PERCOCET 5/325 PO PRN ×2 (06:04→11:26)
[2018-06-12] MEDS: PULMICORT IH SCH (08:09)
[2018-06-12] MEDS: BROVANA NEBU IH SCH (08:10)
[2018-06-12] MEDS: SPIRIVA IH SCH (08:20)
[2018-06-12] MEDS ORDERED: ZITHROMAX PO SCH (10:00)
[2018-06-12] MEDS: PROTONIX PO SCH (11:27)
[2018-06-12] MEDS: ECOTRIN PO SCH (11:27)
[2018-06-12] MEDS: WELLBUTRIN XL PO SCH ×2 (11:27→11:29)
[2018-06-12] MEDS: HCTZ PO SCH (11:29)
[2018-06-12] MEDS: ROBAXIN PO SCH ×2 (11:30→11:31)
[2018-06-12] MEDS: SOLU-Medrol IV SCH (11:31)
[2018-06-12] MEDS: FLOMAX PO SCH (11:31)
[2018-06-12] MEDS: CLARITIN PO SCH (11:32)
[2018-06-12] MEDS: ZESTRIL PO SCH (11:33)
[2018-06-12] MEDS: SODIUM CHLORIDE FLUSH SYRINGE 10 ML IV SCH (11:41)
[2018-06-12 13:24] VITALS: BP 118/81
--- NOTE | 2018-06-12 14:54 | Discharge Summary ---
Providers - Providers Date of Admission: 06/09/18 12:01 Date of discharge: 06/12/18 Attending physician: MONET LEE 06/09/18 15:27 Consult to Case Management [CONS] Routine Services Needed at Discharge: Other Notified:: copy given to cm Additional Physician Instructions: Inpatient/Home Rehab as per patient request Physical Therapy Evaluation and Treat [CONS] Routine Comment: Reason For Exam: weakness Hospitalization Reason for admission: worsening shortness of breath/acute on chronic respiratory failure Condition: Stable Pertinent studies: CTA chest; no PE, emphysematous changes, large bullae Chest x-ray Hospital course: 16-year-old male patient with significant past medical history of COPD hypertension BPH was admitted through emergency room with worsening shortness of breath, worsening disease and cough, Patient was initially evaluated noted to be in acute exacerbation of COPD and acute on chronic respiratory failure Managed with oxygen titrated to O2 sats more than 90%, nebulizers and IV steroids IV antibiotics and inhalation steroids Patient blood pressure is closely monitored medications optimized Symptoms significantly improved, Today patient is comfortable no new complaints vital signs stable physical examination unremarkable Patient is hemodynamically and clinically stable at discharge Discharge diagnosis; --Acute on chronic hypoxic respiratory failure; Secondary to acute exacerbation of COPD, oxygen Nebulizers, IV steroids, IV antibiotics, --Acute exacerbation of COPD; oxygen nebulizers and steroids antibiotics Evaluation for home oxygen upon discharge --Hypokalemia; corrected --Hypertension; moderate control, continue current antihypertensives --History of BPH; continue Flomax --DVT prophylaxis; Lovenox Patient is stable at discharge Disposition: [id number] HOME UNDER HOME [facility] Time spent for discharge: 31 min Core Measure Documentation - Palliative Care Palliative Care/ Comfort Measures: Not Applicable - Core Measures Any of the following diagnoses?: none Exam - Constitutional Vitals: Temp Pulse Resp BP Pulse Ox 98.4 F 85 20 118/81 95 06/12/18 13:21 06/12/18 13:21 06/12/18 13:21 06/12/18 13:21 06/12/18 13:21 General appearance: Present: no acute distress, well-nourished - EENT Eyes: Present: PERRL, EOM intact - Neck Neck: Present: supple, normal ROM - Respiratory Respiratory effort: normal Respiratory: bilateral: diminished, negative: rales, rhonchi, wheezing - Cardiovascular Rhythm: regular Heart Sounds: Present: S1 & S2 - Extremities Extremities: no ischemia, No edema - Abdominal General gastrointestinal: Present: soft, non-tender, non-distended, normal bowel sounds - Integumentary Integumentary: Present: clear, warm - Musculoskeletal Musculoskeletal: strength equal bilaterally - Psychiatric Psychiatric: appropriate mood/affect, cooperative - Neurologic Neurologic: CNII-XII intact, moves all extremities Plan Activity: advance as tolerated Diet: low salt Additional Instructions: Continue home oxygen as before as needed Follow up with: PRIMARY CARE, [Referring] - 3-5 Days Prescriptions: Acetaminophen/Codeine [Tylenol /Codeine # 3 tab] 1 tab PO BID PRN #10 tablet PRN Reason: Pain, Moderate (4-6) Azithromycin [Zithromax Z-ELIAZAR] 0 mg PO DAILY #1 tab Benzonatate [Tessalon Perles] 100 mg PO Q8HR PRN #15 capsule PRN Reason: Cough methOCARBAMOL [Robaxin TAB] 500 mg PO BID PRN #14 tablet PRN Reason: Muscle Spasm Prednisone [predniSONE 10 mg (6-Day Pack, 21 Tabs)] 10 mg PO .TAPER #1 tab.ds.pk
== END 2018-06-12 17:30 | disposition home health service (06) | DRG 189 ==
LOC: ED 08:48 → 3A 12:01
PROVIDERS: ADMIT Internal Medicine; ATTEND Internal Medicine
DX: J96.21 Acute and chronic respiratory failure with hypoxia (principal); J44.1 Chronic obstructive pulmonary disease with (acute) exacerbation; E87.6 Hypokalemia; I10 Essential (primary) hypertension; N40.0 Benign prostatic hyperplasia without lower urinary tract symptoms; J98.01 Acute bronchospasm; Z90.49 Acquired absence of other specified parts of digestive tract; Z82.49 Family history of ischemic heart disease and other diseases of the circulatory system; Z88.0 Allergy status to penicillin; Z79.899 Other long term (current) drug therapy; Z99.81 Dependence on supplemental oxygen
CPT/HCPCS: 36415; 71045; 71275; 80048; 83735; 84132; 85025; 85379; 87116; 93005; 93010; 94640; 94760; 96374; 96375; G0378; J0456; J1650; J2920; J2930; J3475; J7050; Q9967